=== PATIENT | female | born 2005 | race Asian ===

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

== ENCOUNTER 2025-02-27 07:37 | Emergency (ER) | payer OTHER, SELFPAY ==
--- NOTE | 2025-02-27 07:41 | ED.GENADULT ---
HPI - General Adult General Chief complaint: Chest Pain Stated complaint: per patient .Possible Collapsed left lung Time Seen by Provider: 02/27/25 07:41 History of Present Illness HPI narrative: 19-year-old woman with no significant medical history who presents with 2 days of left-sided chest pain worse with breathing, moving, twisting. No fevers, productive cough recent illness. She traveled from [place] a month ago, she is on control pills. She spoke with number friend who suggested she might have a pneumothorax and come in for further evaluation. She does vape, does not have any history of asthma. Related Data Allergies Allergy/AdvReac Type Severity Reaction Status Date / Time No Known Drug Allergies Allergy Verified 02/27/25 07:56 Review of Systems Review of Systems Narrative: Pertinent positive and negative findings as per HPI Exam Initial Vital Signs Initial Vital Signs: Vital Signs Temperature 98.0 F 02/27/25 07:45 Pulse Rate 56 L 02/27/25 07:45 Respiratory Rate 18 02/27/25 07:45 Blood Pressure 127/87 02/27/25 07:45 Pulse Oximetry 99 02/27/25 07:45 Oxygen Delivery Method Room Air 02/27/25 07:45 General: Healthy appearing, in no acute distress. Able to give a complete and coherent history. Well-nourished well-developed Respiratory: Lungs are clear to auscultation bilaterally, no wheezing no rales no rhonchi. Full and symmetrical air movement Chest: Very tender along the left pectoral edge and costochondral margins on the left side that completely reproduces her pain Cardiac: Regular rate and rhythm no murmurs no bruits Abdomen: Soft, nontender, no rebound or guarding, no flank pain Skin: Warm and dry, no rashes Neurologic: Grossly neurologically intact with no obvious asymmetries or abnormalities Extremities: No trauma, well perfused Psych: Cooperative, appropriate insight and affect Course Orders Ordered: ED Orders 02/27/25 07:51 XR chest 1V Stat Discontinued Medications Acetaminophen (Acetaminophen 325 Mg Tablet) 325 mg PO NOW ONE Stop: 02/27/25 09:03 Last Admin: 02/27/25 09:26 Dose: 325 mg Documented By: MARCEL Ibuprofen (Ibuprofen 400 Mg Tablet) 400 mg PO NOW ONE Stop: 02/27/25 09:03 Last Admin: 02/27/25 09:28 Dose: 400 mg Documented By: MARCEL Vital Signs Vital signs: Vital Signs - 8 hr 02/27/25 07:45 02/27/25 08:12 02/27/25 08:14 Temperature 98.0 F Pulse Rate 56 L 54 L Respiratory Rate 18 Blood Pressure 127/87 118/79 118/79 Pulse Oximetry 99 98 Oxygen Delivery Method Room Air 02/27/25 08:14 02/27/25 08:30 02/27/25 08:30 Temperature Pulse Rate 54 L 49 L Respiratory Rate Blood Pressure 121/80 Pulse Oximetry 97 98 Oxygen Delivery Method 02/27/25 09:00 02/27/25 09:00 Temperature Pulse Rate 77 Respiratory Rate Blood Pressure 118/64 Pulse Oximetry 99 Oxygen Delivery Method Medical Decision Making MDM Narrative Medical decision making narrative: 19-year-old young woman who has 2 days of left-sided chest pain completely reproducible with palpation along the medial aspect of left pectoralis muscle extending into the costochondral angles. Given normal heart rate, blood pressure oxygenation without any complaints of dyspnea PE is considered and felt to be unlikely. There was no signs of bacterial infection, viral infection, asthma or other primary pulmonary issues. She was given ibuprofen and Tylenol in the emergency department with some relief of pain. I believe this is musculoskeletal chest pain, she notes that she does exercise quite a bit regularly. Encouraged her to continue the exercise, reviewed x-ray that shows no pneumothorax, infiltrate, widened mediastinum were cardiomegaly. All findings are reviewed in detail with her. There was no indication for further workup or hospitalization. She is safe for discharge Additional Information: Heart score=0 Discharge Plan Departure Patient Disposition: Home Clinical Impression: Anterior chest wall pain Activity Restrictions/Additional Instructions: Thank you for coming in today Having chest pain that continues to last in his is painful can be very frightening. Fortunately, your chest x-ray is very reassuring. Based on your history and physical exam, I do not suspect blood clots, heart attack, infection, viral syndrome or anything else that would be life-threatening over require further workup Using 400 mg of ibuprofen (2 [id number] pills) and 1 Tylenol every 6 hours can be very helpful in controlling pain. If you find that you are getting worse or develop any new symptoms, please feel free to return to the emergency department for further evaluation. Referrals: ProviderAngelica [Primary Care Provider, Family Practice] Stand Alone Forms: Patient Portal/API
[2025-02-27 07:45] VITALS: BP 127/87; PULSE 56; RESP 18; TEMP 36.7; O2SAT 99; BMI 23.8
--- NOTE | 2025-02-27 07:51 | DI.RAD.S_ITS ---
PROCEDURE: XR CHEST 1V INDICATIONS: LEFT CHEST pAIN TECHNIQUE: One view of the chest was acquired. COMPARISON: None. FINDINGS: Surgical changes and devices: None. Lungs and pleura: Lungs are clear. No pleural effusions or pneumothorax. Mediastinum: Mediastinal contours appear normal. Heart size is normal. Bones and chest wall: No suspicious bony lesions. Overlying soft tissues appear unremarkable. IMPRESSION: No acute cardiopulmonary abnormality is seen. Dictated by: Mathieu Gunter M.D. on 02/27/2025 at 8:35 Approved by: Mathieu Gunter M.D. on 02/27/2025 at 8:35
[2025-02-27 08:12] VITALS: BP 118/79; PULSE 54; O2SAT 98
[2025-02-27 08:14] VITALS: BP 118/79; PULSE 54; O2SAT 97
[2025-02-27 08:30] VITALS: BP 121/80; PULSE 49; O2SAT 98
[2025-02-27 09:00] VITALS: BP 118/64; PULSE 77; O2SAT 99
[2025-02-27] MEDS: ACETAMINOPHEN 325 MG TABLET PO (09:26)
[2025-02-27] MEDS: IBUPROFEN 400 MG TABLET PO (09:28)
== END 2025-02-27 09:35 | disposition home or self-care (01) ==
PROVIDERS: Emergency Provider Emergency Medicine
DX: R07.89 Other chest pain (principal)
CPT/HCPCS: 71045; 99283